=== PATIENT | female | born 1985 | race Asian ===

== ENCOUNTER 2017-06-24 13:10 | Emergency (ER) | payer OTHER ==
[2017-06-24 17:22] LABS: ADD MAN DIFF? NO
[2017-06-24 17:26] LABS: BASOPHILS % 0.4 % (0.0-2.0); EOSINOPHILS # 0.1 10^3/ul (0.0-0.5); EOSINOPHILS % 0.8 % (0.0-7.0); HEMOGLOBIN 13.2 g/dl (12.0-16.0); LYMPHOCYTES # 2.5 10^3/ul (0.8-2.9); LYMPHOCYTES % 23.8 % (15.0-51.0); MEAN CORPUSCULAR HEMOGLOBIN 31.3 pg (29.0-33.0); MEAN CORPUSCULAR HGB CONC 33.8 g/dl (32.0-37.0); MEAN CORPUSCULAR VOLUME 92.4 fl (82.0-101.0); MEAN PLATELET VOLUME 10.5 fl (7.4-10.4); MONOCYTE # 0.8 10^3/ul (0.3-0.9); MONOCYTES % 7.9 % (0.0-11.0); NEUTROPHIL # 7.1 10^3/ul (1.6-7.5); NEUTROPHILS % 66.8 % (39.0-77.0); PLATELET COUNT 383 10^3/UL (140-415); RED BLOOD COUNT 4.22 10^6/ul (4.20-5.40); RED CELL DISTRIBUTION WIDTH 12.2 % (11.5-14.5)
[2017-06-24 17:26] LABS: WHITE BLOOD COUNT 10.6 10^3/ul (4.8-10.8)
[2017-06-24 17:55] LABS: ADD UMIC YES; UR ASCORBIC ACID NEGATIVE (NEGATIVE); UR BILIRUBIN (Dip) NEGATIVE (NEGATIVE); UR BLOOD (Dip) 1+ mg/dL (NEGATIVE); UR CLARITY CLEAR (CLEAR); UR COLOR STRAW (YELLOW); UR GLUCOSE (Dip) NEGATIVE (NEGATIVE); UR KETONES (Dip) NEGATIVE (NEGATIVE); UR LEUKOCYTE ESTERASE (Dip) NEGATIVE Leu/ul (NEGATIVE); UR NITRITE (Dip) NEGATIVE (NEGATIVE); UR RBC 1 /HPF (0-5); UR SPECIFIC GRAVITY (Dip) 1.003 (1.003-1.030); UR TOTAL PROTEIN (Dip) NEGATIVE (NEGATIVE); UR UROBILINOGEN (Dip) NEGATIVE (NEGATIVE); UR WBC 0 /HPF (0-5)
== END 2017-06-24 19:00 | disposition home or self-care (01) ==
LOC: FTE 13:10
DX: O26.891 Other specified pregnancy related conditions, first trimester (principal); R10.2 Pelvic and perineal pain; Z3A.11 11 weeks gestation of pregnancy
CPT/HCPCS: 36415; 76801; 81001; 84702; 85025; 86900; 86901; 99284-25

== ENCOUNTER 2018-01-05 11:34 | Outpatient (CLI) | payer OTHER ==
[2018-01-05 12:27] LABS: ADD UMIC NO; UR ASCORBIC ACID NEGATIVE (NEGATIVE); UR BILIRUBIN (Dip) NEGATIVE (NEGATIVE); UR BLOOD (Dip) NEGATIVE (NEGATIVE); UR CLARITY CLEAR (CLEAR); UR COLOR YELLOW (YELLOW); UR GLUCOSE (Dip) NEGATIVE (NEGATIVE); UR KETONES (Dip) NEGATIVE (NEGATIVE); UR LEUKOCYTE ESTERASE (Dip) NEGATIVE Leu/ul (NEGATIVE); UR NITRITE (Dip) NEGATIVE (NEGATIVE); UR SPECIFIC GRAVITY (Dip) 1.011 (1.003-1.030); UR TOTAL PROTEIN (Dip) NEGATIVE (NEGATIVE); UR UROBILINOGEN (Dip) NEGATIVE (NEGATIVE)
[2018-01-10] MEDS ORDERED: KETOROLAC 30 MG INJ IV (01:00)
[2018-01-10] MEDS ORDERED: ONDANSETRON 4 MG INJ IV (01:00)
[2018-01-10] MEDS ORDERED: NALBUPHINE HCL (10 MG/1 ML) INJ IV (01:00)
[2018-01-10] MEDS ORDERED: ZOLPIDEM 5 MG TAB PO (01:00)
[2018-01-10] MEDS ORDERED: NALOXONE (0.4 MG/ML) INJ IV (01:00)
[2018-01-10] MEDS ORDERED: HYDROmorphONE 0.5 MG/0.5 ML SYG IV ×2 (01:00)
[2018-01-10] MEDS ORDERED: DIPHENHYDRAMINE 50 MG INJ IV (01:00)
== END 2018-01-05 13:39 | disposition home or self-care (01) ==
LOC: OBT 11:34 → L-D 11:34 → OBT 13:39
DX: O62.9 Abnormality of forces of labor, unspecified (principal); Z3A.38 38 weeks gestation of pregnancy
CPT/HCPCS: 76818; 81003; 87086

== ENCOUNTER 2018-01-07 20:15 | Inpatient (IN) | payer OTHER ==
[2018-01-07] MEDS ORDERED: IBUPROFEN 600 MG TAB PO (21:00)
[2018-01-07] MEDS ORDERED: METHYLERGONOVINE 0.2 MG INJ IM (21:00)
[2018-01-07] MEDS ORDERED: MISOPROSTOL 200 MCG TAB PR (21:00)
[2018-01-07] MEDS ORDERED: OXYTOCIN 30 UNITS/LR 500 ML IV ×2 (21:00)
[2018-01-07] MEDS ORDERED: BUTORPHANOL 1 MG INJ IV (21:00)
[2018-01-07] MEDS ORDERED: CARBOPROST 250 MCG INJ IM (21:00)
[2018-01-07] MEDS ORDERED: LIDOCAINE 1% (MPF) 30 ML INJ INJ (21:00)
[2018-01-07] MEDS: LACTATED RINGER'S 1,000 ML IV* (21:32)
[2018-01-07 21:44] LABS: ADD MAN DIFF? NO
[2018-01-07] MEDS: AMPICILLIN 2 GM/NS (PMX) 100 ML IV (21:44)
[2018-01-07 21:46] LABS: BASOPHILS % 0.3 % (0.0-2.0); EOSINOPHILS # 0.1 10^3/ul (0.0-0.5); HEMATOCRIT 38.3 % (37.0-47.0); HEMOGLOBIN 12.9 g/dl (12.0-16.0); LYMPHOCYTES % 19.8 % (15.0-51.0); MEAN CORPUSCULAR HEMOGLOBIN 31.9 pg (29.0-33.0); MEAN CORPUSCULAR HGB CONC 33.7 g/dl (32.0-37.0); MEAN CORPUSCULAR VOLUME 94.8 fl (82.0-101.0); MEAN PLATELET VOLUME 12.9 fl (7.4-10.4); MONOCYTE # 0.9 10^3/ul (0.3-0.9); MONOCYTES % 9.4 % (0.0-11.0); NEUTROPHIL # 6.8 10^3/ul (1.6-7.5); NEUTROPHILS % 69.2 % (39.0-77.0); PLATELET COUNT 194 10^3/UL (140-415); RED BLOOD COUNT 4.04 10^6/ul (4.20-5.40); RED CELL DISTRIBUTION WIDTH 13.2 % (11.5-14.5)
[2018-01-07 21:46] LABS: WHITE BLOOD COUNT 9.8 10^3/ul (4.8-10.8)
[2018-01-07] MEDS ORDERED: DEXTROSE 5%-LR 1,000 ML IV (22:00)
[2018-01-07 22:06] LABS: INR 0.76; PROTIME 10.7 Sec (11.9-14.9); PT RATIO 0.8
[2018-01-07 22:07] LABS: PARTIAL THROMBOPLASTIN TIME 25.6 Sec (25.0-35.0)
[2018-01-07 22:41] LABS: HEPATITIS B SURFACE ANTIGEN NEGATIVE (NEGATIVE)
[2018-01-07] MEDS: DINOPROSTONE 10 MG VAG SUPP VAG (23:39)
[2018-01-08] MEDS: BUTORPHANOL 2 MG INJ IV ×3 (01:18→20:04)
[2018-01-08] MEDS: AMPICILLIN 1 GM/NS (PMX) 50 ML IV ×6 (01:22→21:24)
[2018-01-08] MEDS: LACTATED RINGER'S 1,000 ML IV* ×3 (04:49→23:58)
[2018-01-08] MEDS: DEXTROSE 5%-LR 1,000 ML IV ×2 (14:08→22:00)
[2018-01-08] MEDS ORDERED: FENTAnyl 2MCG/ML-ROPIV 0.2% 100 ML (21:48)
[2018-01-08 22:20] LABS: RAPID PLASMA REAGIN NONREACTIVE (NR)
[2018-01-08] MEDS ORDERED: NALOXONE (0.4 MG/ML) INJ IV (22:30)
[2018-01-08] MEDS ORDERED: DIPHENHYDRAMINE 50 MG INJ IV (22:30)
[2018-01-08] MEDS ORDERED: ONDANSETRON 4 MG INJ IV (22:30)
[2018-01-09] MEDS: AMPICILLIN 1 GM/NS (PMX) 50 ML IV ×6 (01:20→21:15)
[2018-01-09] MEDS: OXYTOCIN 30 UNITS/LR 500 ML IV (01:40)
[2018-01-09] MEDS: MINERAL OIL LIGHT 10 ML VIAL TOP (03:30)
[2018-01-09] MEDS ORDERED: OXYTOCIN 30 UNITS/LR 500 ML BAG IV (07:00)
[2018-01-09] MEDS: LACTATED RINGER'S 1,000 ML IV* ×2 (07:49→18:58)
[2018-01-09] MEDS: FENTAnyl 2MCG/ML-ROPIV 0.2% 100 ML BAG EPI ×2 (08:03→17:35)
[2018-01-09] MEDS: DEXTROSE 5%-LR 1,000 ML IV (15:01)
[2018-01-09] MEDS ORDERED: FLUCONAZOLE 150 MG TAB PO (18:00)
[2018-01-09] MEDS ORDERED: LIDOCAINE 1.5%/EPI MPF (SDV) 30 ML VIAL (23:57)
[2018-01-09] MEDS ORDERED: FENTAnyl 50 MCG/ML VIAL (23:58)
[2018-01-10] MEDS: CEFAZOLIN 2 GM/50 ML (PMX) 50 ML IVPB
[2018-01-10] MEDS ORDERED: DEXAMETHASONE 4 MG/ML 1 ML INJ (00:11)
[2018-01-10] MEDS ORDERED: OXYTOCIN 10 UNIT INJ (00:11)
[2018-01-10] MEDS ORDERED: ONDANSETRON 4 MG INJ (00:11)
[2018-01-10] MEDS ORDERED: FENTAnyl 50 MCG/ML VIAL (00:32)
[2018-01-10] MEDS ORDERED: morphine SULFATE/PF (10 MG/10 ML) INJ (01:04)
[2018-01-10] MEDS: LACTATED RINGER'S 1,000 ML IV ×4 (01:22→22:27)
[2018-01-10] MEDS ORDERED: ZOLPIDEM 5 MG TAB PO ×3 (01:30→03:34)
[2018-01-10] MEDS ORDERED: ONDANSETRON 4 MG INJ IV ×3 (01:30→03:34)
[2018-01-10] MEDS ORDERED: OXYTOCIN 30 UNITS/LR 500 ML IV ×2 (01:30→02:00)
[2018-01-10] MEDS ORDERED: MISOPROSTOL 200 MCG TAB PR ×2 (01:30→02:00)
[2018-01-10] MEDS ORDERED: CARBOPROST 250 MCG INJ IM ×2 (01:30→02:00)
[2018-01-10] MEDS ORDERED: OXYCODONE/ACETAMINOPHEN (5/325) TAB PO ×4 (01:30→02:00)
[2018-01-10] MEDS ORDERED: LACTATED RINGER'S 1,000 ML IV (01:32)
[2018-01-10] MEDS: OXYTOCIN 30 UNITS/LR 500 ML IV (01:47)
[2018-01-10] MEDS: METHYLERGONOVINE 0.2 MG INJ IM (01:49)
[2018-01-10] MEDS ORDERED: LANOLIN 7 GM TUBE TOP (02:00)
[2018-01-10] MEDS ORDERED: METHYLERGONOVINE 0.2 MG INJ IM (02:00)
[2018-01-10] MEDS ORDERED: DIPHENHYDRAMINE 50 MG INJ IV ×2 (02:00→03:33)
[2018-01-10] MEDS: KETOROLAC 30 MG INJ IV ×4 (02:29→21:31)
[2018-01-10] MEDS ORDERED: KETOROLAC 30 MG INJ IV (03:34)
[2018-01-10] MEDS ORDERED: HYDROmorphONE 0.5 MG/0.5 ML SYG IV ×2 (03:34)
[2018-01-10] MEDS ORDERED: NALBUPHINE HCL (10 MG/1 ML) INJ IV (03:34)
[2018-01-10] MEDS ORDERED: NALOXONE (0.4 MG/ML) INJ IV (03:34)
[2018-01-10] MEDS: DIPHENHYDRAMINE 50 MG INJ IV (04:40)
[2018-01-10] MEDS: IBUPROFEN 600 MG TAB PO ×3 (06:00→17:49)
[2018-01-10] MEDS ORDERED: IBUPROFEN 600 MG TAB PO (06:00)
[2018-01-10] MEDS: PANTOPRAZOLE (EC) 40 MG TAB PO (06:00)
[2018-01-10] MEDS ORDERED: SENNA/DOCUSATE NA (8.6MG/50MG) TAB PO (09:00)
[2018-01-10] MEDS: SENNA/DOCUSATE NA (8.6MG/50MG) TAB PO ×2 (09:17→21:31)
[2018-01-11] MEDS: IBUPROFEN 600 MG TAB PO ×5 (05:41→23:30)
[2018-01-11 09:25] LABS: ADD MAN DIFF? NO
[2018-01-11 09:34] LABS: BASOPHILS % 0.3 % (0.0-2.0); EOSINOPHILS # 0.1 10^3/ul (0.0-0.5); EOSINOPHILS % 0.6 % (0.0-7.0); HEMATOCRIT 31.5 % (37.0-47.0); HEMOGLOBIN 10.7 g/dl (12.0-16.0); IMMATURE GRANS #M 0.06 10^3/ul; IMMATURE GRANS % (M) 0.5 %; LYMPHOCYTES % 15.2 % (15.0-51.0); MEAN CORPUSCULAR HEMOGLOBIN 32.5 pg (29.0-33.0); MEAN CORPUSCULAR VOLUME 95.7 fl (82.0-101.0); MEAN PLATELET VOLUME 12.7 fl (7.4-10.4); MONOCYTE # 0.8 10^3/ul (0.3-0.9); MONOCYTES % 6.2 % (0.0-11.0); NEUTROPHILS % 77.2 % (39.0-77.0); PLATELET COUNT 148 10^3/UL (140-415); RED BLOOD COUNT 3.29 10^6/ul (4.20-5.40); RED CELL DISTRIBUTION WIDTH 13.3 % (11.5-14.5)
[2018-01-11] MEDS: SENNA/DOCUSATE NA (8.6MG/50MG) TAB PO ×2 (10:10→20:59)
[2018-01-11] MEDS: LANOLIN 7 GM TUBE TOP (10:11)
[2018-01-12] MEDS: IBUPROFEN 600 MG TAB PO ×2 (05:42→13:16)
[2018-01-12] MEDS: SENNA/DOCUSATE NA (8.6MG/50MG) TAB PO (09:00)
[2018-01-12] MEDS: DIPHTH/TET/ACEL PERTUSS (ADULT) 0.5 ML VIAL IM* (12:07)
== END 2018-01-12 13:40 | disposition home or self-care (01) | DRG 766 ==
LOC: PP1 01-10 04:02 → L-D 20:15
PROVIDERS: Obstetrics & Gynecology
PROC: 3E0P7VZ Introduction of Hormone into Female Reproductive, Via Natural or Artificial Opening (ICD-10-PCS; 2018-01-07 20:30)
PROC: 10D00Z1 Extraction of Products of Conception, Low, Open Approach (ICD-10-PCS; principal; 2018-01-10 00:15)
DX: O24.420 Gestational diabetes mellitus in childbirth, diet controlled (principal); O62.2 Other uterine inertia; Z3A.39 39 weeks gestation of pregnancy; Z37.0 Single live birth
CPT/HCPCS: 62319; 76815; 82962; 85025; 85610; 85730; 86592; 86850; 86900; 86901; 87340; 90715; 99464

== ENCOUNTER 2018-02-24 15:28 | Emergency (ER) | payer MEDICAID, OTHER ==
[2018-02-24] MEDS: LIDOCAINE 1% (MDV) 20 ML INJ SC (17:12)
== END 2018-02-24 18:15 | disposition home or self-care (01) ==
LOC: FTE 15:28
DX: O86.19 Other infection of genital tract following delivery (principal); B97.89 Other viral agents as the cause of diseases classified elsewhere
CPT/HCPCS: 56420; 99282-25

== ENCOUNTER 2018-06-02 16:09 | Emergency (ER) | payer MEDICAID ==
[2018-06-02] MEDS: LIDOCAINE 1% (MPF) 5 ML VIAL INFIL (16:50)
[2018-06-02 17:01] LABS: URINE PH (Dip) POC 6.5 (5.0-8.5)
[2018-06-02 17:01] LABS: URINE BLOOD (Dip) POC Negative (NEGATIVE); URINE GLUCOSE (Dip) POC Negative (NEGATIVE); URINE KETONES (Dip) POC Negative (NEGATIVE); URINE LEUKOCYTE EST (Dip) POC Negative (NEGATIVE); URINE NITRITE (Dip) POC Negative (NEGATIVE); URINE TOTAL PROTEIN POC Negative (NEGATIVE)
== END 2018-06-02 17:56 | disposition home or self-care (01) ==
LOC: FTE 16:09
DX: N75.1 Abscess of Bartholin's gland (principal)
CPT/HCPCS: 56420; 81003; 81025; 99283-25